=== PATIENT | male | born 1980 | race Caucasian/White ===

== ENCOUNTER 2020-03-02 06:30 | Day surgery (SDC) | payer SELFPAY ==
[2020-02-29 13:51] VITALS: BMI 43.2
[2020-03-02 06:56] VITALS: BP 153/99; PULSE 79; RESP 18; TEMP 36.1; O2SAT 98
[2020-03-02] MEDS: sodium chloride 0.9% 1,000 ML 30 ML IV (07:10)
--- NOTE | 2020-03-02 07:20 | ANES.PREANE2 ---
Pre-Anesthetic Assessment Pre-Anesthetic Assessment: Height/Weight: Height 1.65 m Weight 117.934 kg Temp Pulse Resp BP Pulse Ox 97 F L 79 18 153/99 98 03/02/20 06:56 03/02/20 06:56 03/02/20 06:56 03/02/20 06:56 03/02/20 06:56 Preop Diagnosis: Bleeding per rectum Proposed Procedure: Operation Date: 03/02/20 08:00 Proposed Procedures p EGD 63439/ COLONOSCOPY [id number](Not Applicable) - Rylan Barragan MD s Colonoscopy(Not Applicable) - Rylan Barragan MD Last intake: Intake Last Liquid Date 03/01/20 Last Liquid Time 23:00 Last Solid Date 02/29/20 Last Solid Time 17:00 Social: Social History: No alcohol and No tobacco Exam: Pre-Anes Outpt Exam: alert, oriented x 3, clear to auscultation bilaterally and regular rate & rhythm Airway: Submandibular: WNL Cervical ROM: WNL MP: 1 Dentition: Other (teeth ok) History/ROS: No significant history except as noted Pulmonary: Pulmonary: Sleep apnea CV/HEM: CV/HEM: None reported : : None reported Hepatic: Hepatic: None reported GI: GI: GERD Comments: GI bleed Metabolic: Metabolic: Morbid obesity Musc/skel: Musc/skel: None reported Neuropsych: Neuropsych: None reported Anesthetic Plan: ASA status: 2 Anesthesia: Anesthesia Evaluation and MAC Risk of > 500 ml blood loss (7ml/kg in children): No Meds/Allergies Current Medications: Current Medications Generic Name Dose Route Start Last Admin Trade Name Freq PRN Reason Stop Dose Admin Sodium Chloride 1,000 mls @ 30 ml s/hr 03/02/20 07:00 03/02/20 07:10 Sodium Chloride 0.9% IV 30 mls/hr .Q24H HAFSA Administration PFSH Anesthesia PFSH: Medical History Anxiety Bleeding per rectum Epigastric pain GERD (gastroesophageal reflux disease) Family History Denies family history of Anesthesia complication Bleeding disorder Social History Smoking and tobacco status: never smoked Second hand smoke exposure: No Alcohol intake: never Adopted: No Caregiver/support person: Yes Lives independently: Yes Household members: family Housing: House Marital status: Single Current occupational exposures/hazards: No Pets and animals: No History of recent travel: No Sexually active: No Current gender identity: Male Data Anesthesia Cardiac Studies: No Data to Display
--- NOTE | 2020-03-02 07:35 | W.PM.OPSUD ---
Surgery/Procedure H&P Update DATE OF PROCEDURE: March 02, 2020 DATE H&P PERFORMED: 02/08/20 H&P UPDATE INFORMATION: I have reviewed H&P completed within last 30 days, I have examined patient prior to procedure and No changes to prior documentation PREOP DIAGNOSIS: Bleeding per rectum and epigastric pain PRIMARY INDICATION FOR PROCEDURE: The same PLANNED PROCEDURE: Operation Date: 03/02/20 08:00 Proposed Procedures p EGD [id number]/ COLONOSCOPY [id number](Not Applicable) - Rylan Barragan MD s Colonoscopy(Not Applicable) - Rylan Barragan MD
[2020-03-02 07:51] VITALS: BP 134/86; PULSE 87; RESP 16; TEMP 36.7; O2SAT 97
--- NOTE | 2020-03-02 08:06 | ANE.PACU2 ---
Inpatient post-anesthesia follow up: Airway intact: Yes Vital signs: Temperature 98.0 F Pulse Rate 87 Respiratory Rate 16 Blood Pressure 134/86 Pulse Oximetry 97 Oxygen Delivery Me thod Nasal Cannula Oxygen Flow Rate 3 Fraction of Inspir ed Oxygen Hydration adequate: Yes Nausea and vomiting: Yes Pain level: 1 Mental status: Baseline
[2020-03-02 08:09] VITALS: BP 140/96; PULSE 72; RESP 18; TEMP 36.6; O2SAT 96
[2020-03-03 06:10] LABS: H. Pylori / CLO Test Negative
== END 2020-03-02 08:20 | disposition home or self-care (01) ==
PROVIDERS: PCP Nurse Practitioner; Visit Provider Surgery
PROC: 0DJ08ZZ Inspection of Upper Intestinal Tract, Via Natural or Artificial Opening Endoscopic (ICD-10-PCS; CPT 43235; principal; 2020-03-02 08:00)
PROC: 0DJD8ZZ Inspection of Lower Intestinal Tract, Via Natural or Artificial Opening Endoscopic (ICD-10-PCS; CPT 45378; 2020-03-02 08:00)
DX: K62.5 Hemorrhage of anus and rectum (principal); R10.13 Epigastric pain; K21.0 Gastro-esophageal reflux disease with esophagitis; K29.70 Gastritis, unspecified, without bleeding; G47.30 Sleep apnea, unspecified; E66.01 Morbid (severe) obesity due to excess calories; Z68.41 Body mass index [BMI] 40.0-44.9, adult
CPT/HCPCS: 12345; 43239; 45378; 87077; J2001; J2704; J7030

== ENCOUNTER 2025-04-13 14:24 | Outpatient (CLI) | payer MEDICAID, SELFPAY ==
--- NOTE | 2025-04-13 14:31 | USCV_ITS ---
Becki Mayen Age: 44 Gender: M : 1980 Exam Date: 04/13/2025 14:57 Ordering Phys: Sara Iverson Technologist: JAMES Exam Location: [facility] – [place] Indication: swelling HISTORY: Lower extremity swelling. PROCEDURES: Venous duplex imaging was performed in only the right lower extremity. The following venous structures were evaluated: common femoral vein, profunda vein, proximal portion of the greater saphenous vein, superficial femoral vein, and the popliteal vein. In addition, the posterior tibial and peroneal trunk were evaluated. FINDINGS: Examination was technically limited due to body habitus. No evidence of DVT seen in any vessel visualized at this time. CONCLUSIONS No evidence of right lower extremity DVT. Igor Hilario MD (Electronically Signed) Final Date: 13 April 2025 16:30 S
== END 2025-04-13 14:25 | disposition home or self-care (01) ==
LOC: RAD 14:27
PROVIDERS: PCP Nurse Practitioner; Visit Provider Nurse Practitioner
DX: R22.41 Localized swelling, mass and lump, right lower limb (principal)
CPT/HCPCS: 93971